=== PATIENT | female | born 1985 | race American Indian/Alaskan Native ===

== ENCOUNTER 2016-10-26 07:20 | Emergency (ER) | payer OTHER ==
[2016-10-26 07:39] VITALS: BP 142/106
--- NOTE | 2016-10-26 08:49 | Emergency Department Report ---
HPI - General Chief Complaint: Adult Asthma Time Seen by Provider: 10/26/16 08:33 - HPI HPI: 31-year-old female presents today stating that she woke up at 5 AM this morning with shortness of breath and swollen fingers. Also felt a pinching sensation in her chest for a couple minutes this morning. Patient states that she used her albuterol inhaler with symptomatic relief. Positive for history of asthma and hypertension. At this time all her symptoms have resolved. Denies chest pain, shortness of breath, fever, chills, nausea, vomiting, abdominal pain, wheezing. No medical complaints at this time. Informed patient that her blood pressure was elevated today. Patient states that she has not taken her medications this morning. Patient would like a refill of her blood pressure medication, HCTZ 25 mg daily, and Ventolin HFA. ED Past Medical Hx - Past Medical History Hx Hypertension: Yes Hx Asthma: Yes Additional medical history: heart murmur. morbid obesity - Surgical History Past Surgical History?: No - Social History Smoking Status: Former Smoker Substance Use Type: Alcohol, Marijuana - Medications Home Medications: Home Medications Medication Instructions Recorded Confirmed Last Taken Type Albuterol Sulfate [Proventil HFA] 1 - 2 puff IH Q4H PRN 12/05/13 10/26/16 07:00 History Albuterol Sulfate [Ventolin HFA] 2 puff IH Q4H PRN #1 hfa.[email or web address] 10/26/16 Unknown Rx Hydrochlorothiazide [HCTZ] 25 mg PO QDAY #30 tablet 10/26/16 Unknown Rx ED Review of Systems ROS: Stated complaint: SHARLENE Other details as noted in HPI Constitutional: denies: chills, fever, malaise Eyes: denies: eye pain ENT: denies: ear pain, throat pain, congestion Respiratory: denies: shortness of breath, wheezing Cardiovascular: denies: chest pain, palpitations Endocrine: no symptoms reported Gastrointestinal: denies: abdominal pain, nausea, vomiting Neurological: denies: headache, weakness Physical Exam - Physical Exam Vital Signs: Vital Signs 10/26/16 07:28 Temperature 98.1 F Pulse Rate 96 H Respiratory 16 Rate Blood Pressure 142/106 O2 Sat by Pulse 100 Oximetry Physical Exam: GENERAL: The patient is well-developed and well-nourished. Patient is in NAD. HEAD: Normocephalic. Atraumatic. EYES: PERRL. EARS: External auditory canals and tympanic membranes clear; hearing grossly intact. NOSE: Normal nasal mucosa with no nasal discharge. THROAT: No erythema, swelling or exudates. NECK: Supple, nontender, without lymphadenopathy. No meningitic signs are noted. CHEST/LUNGS: Clear to auscultation throughout. No wheezing noted. HEART/CARDIOVASCULAR: Regular rate and rhythm. No murmurs, rubs or gallops. ABDOMEN: Abdomen is soft, nontender. Bowel sounds normoactive. No guarding or rebound tenderness. EXTREMITIES: No cyanosis, clubbing or edema. Peripheral pulses intact. Capillary refill less than 2 seconds. NEURO: Alert and oriented x 3. Normal gait. ED Course Vital Signs 10/26/16 07:28 Temperature 98.1 F Pulse Rate 96 H Respiratory 16 Rate Blood Pressure 142/106 O2 Sat by Pulse 100 Oximetry ED Medical Decision Making - Lab Data Vital Signs 10/26/16 07:28 Temperature 98.1 F Pulse Rate 96 H Respiratory 16 Rate Blood Pressure 142/106 O2 Sat by Pulse 100 Oximetry Patient did not take her blood pressure medication this morning. She states that she will take it once she gets home. - Medical Decision Making 31-year-old female presents today with an episode of shortness of breath and finger swelling that was relieved by her albuterol inhaler. Positive for history of asthma. Denies any medical complaints at this time. Her physical exam is unremarkable. Patient is in no acute distress at this time. She will be discharged home and is encouraged to follow up with a primary care provider. Her HCTZ and Ventolin inhaler will be refilled today. She is encouraged to return to the emergency room for any worsening symptoms. As per the [employer] clinical policy on asymptomatic hypertension: Initiating treatment for asymptomatic hypertension in the ED is not necessary when patients have follow-up; (2) Rapidly lowering blood pressure in asymptomatic patients in the ED is unnecessary and may be harmful in some patients; (3) When ED treatment for asymptomatic hypertension is initiated, blood pressure management should attempt to gradually lower blood pressure and should not be expected to be normalized during the initial ED visit. Emphasized the importance of follow up with primary care physician and explained to patient that uncontrolled hypertension can lead to long-term complications of hypertension/elevated blood pressure including stroke, heart attack, disability, , paralysis, permanent loss of quality of life. Patient expressed understanding. Critical care attestation.: If time is entered above; I have spent that time in minutes in the direct care of this critically ill patient, excluding procedure time. ED Disposition Clinical Impression: Asthma Qualifiers: Asthma severity: unspecified severity Asthma complication type: uncomplicated Qualified Code(s): J45.909 - Unspecified asthma, uncomplicated HTN (hypertension) Qualifiers: Hypertension type: essential hypertension Qualified Code(s): I10 - Essential ( primary) hypertension Disposition: DISCHARGED TO HOME OR SELFCARE Is pt being admited?: No Does the pt Need Aspirin: No Condition: Stable Instructions: Asthma (ED), Hypertension (ED) Additional Instructions: Follow-up with primary care provider. Return to the emergency department if symptoms worsen. Prescriptions: Albuterol Sulfate [Ventolin HFA] 2 puff IH Q4H PRN #1 hfa.aer.ad PRN Reason: Shortness Of Breath Hydrochlorothiazide [HCTZ] 25 mg PO QDAY #30 tablet Referrals: PRIMARY CARE, [Primary Care Provider] - 3-5 Days [facility] [Outside] - 3-5 Days Forms: Work/School Release Form(ED) Time of Disposition: 08:51
== END 2016-10-26 09:22 | disposition home or self-care (01) ==
LOC: ED 07:20
DX: J45.909 Unspecified asthma, uncomplicated (principal); I10 Essential (primary) hypertension; E66.01 Morbid (severe) obesity due to excess calories; Z87.891 Personal history of nicotine dependence; F12.10 Cannabis abuse, uncomplicated
CPT/HCPCS: 93005; 93010; 99282